=== PATIENT | female | born 1970 | race Caucasian/White ===

== ENCOUNTER 2016-08-09 09:54 | Observation (INO) | payer BC ==
[~2016-08-09 09:54] MED LIST: BYSTOLIC5 M1 PO; CHANTIX1 M1 PO; CYCLOBENZAPRINE10 M1 PO; LEVOCETIRIZINE D5 M1 PO; LORAZEPAM0.5 M1 PO; PLAVIX75 M1 PO
[2016-08-09] MEDS ORDERED: SPIRIVA18 MC1 INH (09:59)
[2016-08-09] MEDS ORDERED: OMEPRAZOLE20 M4 PO (10:01)
[2016-08-09 10:28] LABS: BASO % 0.3 % (0-2); EOS % 0.3 % (0-7); HCT-HEMATOCRIT 37.9 % (34.0-49.0); HGB-HEMOGLOBIN 12.9 gm/dl (12.0-15.5); IMMATURE GRANULOCYTES ABSOLUTE 0.04 tho/cmm (0-0.03); IMMATURE GRANULOCYTES PERCENT 0.3 % (0-0.3); LYMPH % 13.7 % (20-45); LYMPH ABSOLUTE COUNT 1.7 tho/cmm (0.8-4.5); MCH (MEAN CORPUSCULAR HGB) 33.6 pg (28.0-32.0); MCV (MEAN CELL VOLUME) 98.7 fl (82.0-96.0); MEAN PLATELET VOLUME 9.9 cmc (9.4-12.4); MONOCYTE ABSOLUTE COUNT 0.7 tho/cmm (0.0-1.2); NEUTROPHIL ABSOLUTE COUNT 9.8 tho/cmm (1.6-8.0); NEUTROPHIL-AUTOMATED 9.8 tho/cmm (1.6-8.0); NEUTROPHILS % 79.4 % (40-80); PLATELET COUNT 442 tho/cmm (150-450); RED BLOOD COUNT 3.84 mil/cmm (4.00-5.20); RED CELL DISTRIBUTION WIDTH 12.9 % (12.4-16.4); WHITE BLOOD COUNT 12.3 tho/cmm (4.0-10.0)
[2016-08-09 10:44] LABS: ANION GAP 14 mmol/L (0-20); BLOOD UREA NITROGEN 7 mg/dl (6-24); CALCIUM 8.9 mg/dl (8.5-10.5); CARBON DIOXIDE-VENOUS 25 mmol/L (22-32); CHLORIDE 103 mmol/l (96-110); CREATININE 0.74 mg/dl (0.50-1.10); GLUCOSE 141 mg/dL (70-110); POTASSIUM 4.1 mmol/L (3.7-5.1); SODIUM 138 mmol/L (135-145); eGFR VALUE FOR BLACK >90 mL/Min
[2016-08-09] MEDS ORDERED: CHEWABLE-VITE1 EAC1 PO (11:29)
[2016-08-10 06:52] LABS: ANION GAP 12 mmol/L (0-20); BLOOD UREA NITROGEN 5 mg/dl (6-24); CALCIUM 8.6 mg/dl (8.5-10.5); CARBON DIOXIDE-VENOUS 27 mmol/L (22-32); CHLORIDE 104 mmol/l (96-110); CHOLESTEROL 162 mg/dl (120-200); CREATININE 0.59 mg/dl (0.50-1.10); GLUCOSE 89 mg/dL (70-110); HDL CHOLESTEROL 39 mg/dl (40-60); LDL CHOLESTEROL 93 mg/dl (0-99); POTASSIUM 3.9 mmol/L (3.7-5.1); SODIUM 139 mmol/L (135-145); VLDL 30 mg/dl (0-30); eGFR VALUE FOR BLACK >90 mL/Min
[2016-08-10 07:01] LABS: TRIGLYCERIDES 152 mg/dl (<149)
[2016-08-10] MEDS ORDERED: NITROGLYCERIN0.4 M2 SL (10:33)
[2016-08-10] MEDS ORDERED: ASPIRIN81 M1 PO (10:34)
[2016-08-10] MEDS ORDERED: LIPITOR10 M1 PO (10:52)
== END 2016-08-10 12:08 | disposition other institution (70) ==
LOC: EDMED 09:54 → EMR2 15:53 → PCUA 19:00
PROVIDERS: Emergency Medicine; ADMIT Internal Medicine Cardiovascular Disease
PROC: 4A023N7 Measurement of Cardiac Sampling and Pressure, Left Heart, Percutaneous Approach (ICD-10-PCS; principal; 2016-08-10)
DX: I21.4 Non-ST elevation (NSTEMI) myocardial infarction (principal); I25.10 Atherosclerotic heart disease of native coronary artery without angina pectoris; I10 Essential (primary) hypertension; Z82.49 Family history of ischemic heart disease and other diseases of the circulatory system; Z79.899 Other long term (current) drug therapy; Z98.51 Tubal ligation status; Z98.890 Other specified postprocedural states
CPT/HCPCS: G0378; J1644; J1650; J2250; J3010; Q9967